=== PATIENT | female | born 1960 | race Caucasian/White ===

== ENCOUNTER 2020-07-21 09:13 | Outpatient (CLI) | payer BC | END 2020-07-21 09:14 | disposition home or self-care (01) | LOC: BICMAMMO 09:13 | PROVIDERS: ATTEND Family Medicine | DX: Z12.31 Encounter for screening mammogram for malignant neoplasm of breast (principal); Z98.82 Breast implant status | CPT/HCPCS: 77063; 77067 ==

== ENCOUNTER 2021-04-25 15:20 | Outpatient (CLI) | payer BC ==
[2021-04-26 23:25] LABS: SARS-CoV-2 PCR by NAA Not Detected (NotDetected)
== END 2021-04-25 15:21 | disposition home or self-care (01) ==
LOC: LABBT 15:20
PROVIDERS: ATTEND Urology
DX: Z01.818 Encounter for other preprocedural examination (principal); Z20.822 Contact with and (suspected) exposure to COVID-19
CPT/HCPCS: 93005; 93010; U0003; U0005

== ENCOUNTER 2021-04-28 07:50 | Day surgery (SDC) | payer BC ==
[2021-04-27 08:59] VITALS: BMI 22.3
[2021-04-28] MEDS ORDERED: Iothalamate Meglumine 60% 50 ML VIAL FS ONE (08:42)
[2021-04-28] MEDS ORDERED: Fentanyl 100 MCG/2 ML VIAL ONE ×2 (08:48→10:16)
[2021-04-28] MEDS ORDERED: Levofloxacin 500 mg/D5W 100 ml Premix Bag ONE (08:50)
[2021-04-28] MEDS ORDERED: PROPOFOL 200 MG/20 ML VIAL ONE (09:05)
[2021-04-28] MEDS ORDERED: Lidocaine 1% PF 5 ML VIAL ONE (09:05)
[2021-04-28] MEDS ORDERED: Dexamethasone 20 MG/5 ML VIAL ONE (09:05)
[2021-04-28] MEDS ORDERED: Phenylephrine 10 MG/ML VIAL ONE (09:05)
[2021-04-28] MEDS ORDERED: Ondansetron PF 4 MG/2 ML Vial ONE (09:05)
[2021-04-28] MEDS ORDERED: Ketorolac Tromethamine 30 MG/ML VIAL ONE (10:16)
[2021-04-28] MEDS ORDERED: Phenazopyridine HCl 100 MG TAB ONE (10:29)
[2021-04-28] MEDS ORDERED: hydrALAZINE 20 MG/ML VIAL ONE (10:29)
[2021-04-28] MEDS ORDERED: Oxybutynin 5 MG TAB ONE (10:29)
== END 2021-04-28 13:20 | disposition home or self-care (01) ==
LOC: SDC 07:50
PROVIDERS: ATTEND Urology
PROC: 0T778DZ Dilation of Left Ureter with Intraluminal Device, Via Natural or Artificial Opening Endoscopic (ICD-10-PCS; principal; 2021-04-28)
PROC: 0TC78ZZ Extirpation of Matter from Left Ureter, Via Natural or Artificial Opening Endoscopic (ICD-10-PCS; principal; 2021-04-28)
DX: N20.1 Calculus of ureter (principal); N13.5 Crossing vessel and stricture of ureter without hydronephrosis; Z79.899 Other long term (current) drug therapy
CPT/HCPCS: 74420; C2617; J0360; J1100; J1885; J1956; J2370; J2405; J2704; J3010; Q9961-U8